=== PATIENT | female | born 1995 | race Caucasian/White ===

== ENCOUNTER 2016-11-13 22:02 | Emergency (ER) | payer OTHER ==
[2016-11-13 22:11] VITALS: RESP 16; TEMP 98.2
--- NOTE | 2016-11-13 22:30 | EDPHY ---
H & P Time Seen by Provider: 11/13/16 22:13 HPI/ROS: HPI Shaking, tingling, lightheaded, mild headache. 20-year-old female by private vehicle with her mother and boyfriend. Patient reports that she was eating dinner when she started feeling tingling in her hands and feet bilaterally. This was then associated with feeling lightheaded and shaky all over. She reports that she has a mild headache which she describes as gradual onset as well. She reports that she has had these symptoms on and off for the last 1-2 months. She has seen an ice crusher. She had blood work done recently and is waiting for the results of that blood work. She does not have any significant past medical history. She is feeling better at this time. She states she has been under stress with school and planning for her wedding this summer. ROS: Constitutional: No fever, no chills. As above. Eyes: No discharge. No changes in vision. ENT: No sore throat. No nasal congestion or rhinorrhea. Respiratory: No cough. No shortness of breath. Cardiac: No chest pain, no palpitations. Gastrointestinal: No abdominal pain, no vomiting, no diarrhea. Genitourinary: No hematuria. No dysuria or increased frequency with urination. Musculoskeletal: No back pain. No neck pain. No myalgias or arthralgias. Skin: No rashes. Neurological: No focal weakness. As above. Past medical history: Denies any past medical history. Social history: Nonsmoker. No alcohol. Here with her mother and boyfriend. Physical Exam: General Appearance: Thin. Alert, no distress. This patient is responding to questions appropriately and in full sentences. This patient appears well- hydrated and well-nourished. Eyes: Pupils equal and round no pallor or injection. No lid edema, erythema or injection. ENT, Mouth: Mucous membranes are moist. The pharyngeal tissues are unremarkable. No edema or swelling. No asymmetry suggestive of abscess. No erythema or exudates. Respiratory: There are no retractions, lungs are clear to auscultation with good air movement bilaterally. Cardiovascular: Regular rate and rhythm. No murmur. Neurological: Motor sensory function is grossly intact. Cranial nerves are normal. Gait is normal. Skin: Warm and dry, no rashes. Musculoskeletal: Neck is supple and nontender. Extremities are symmetrical. All joints range without pain or impingement. Psychiatric: No agitation. No depression. Database: EKG: EKG time is 10:36 p.m.; EKG shows a narrow complex normal sinus rhythm with a ventricular rate of 74. The MA, QRS, QT intervals are within normal limits. There are no ST-T wave changes indicative of ischemic or injury pattern. No evidence of right heart strain. No evidence of WPW, Brugada syndrome, hypertrophic cardiomyopathy. Interpreted by me. Imaging: Procedures: Emergency department course: Vital signs reviewed and are normal. Point of care glucose is 104. Patient's presentation is consistent with an anxiety reaction. EKG is unremarkable. Patient feeling better on re-evaluation at 10:45 p.m.. Results of EKG and point of care glucose discussed. Plan will be to have the patient follow up with her primary care physician and/or ice crusher for results of pending blood work and further management. Return to emergency department precautions reviewed with the patient and family. All of their questions were answered. She feels comfortable going home. She was discharged in good condition. Differential Diagnosis: The differential diagnosis on this patient includes but is not limited to anxiety reaction, hypoglycemia, panic attack. Arrhythmia, CVA, toxic metabolic etiology unlikely. This represents a partial list of diagnoses considered. These considerations are based on history, physical exam, past history, reassessment and diagnostic testing. Constitutional: Initial Vital Signs Temperature (C) 36.8 C 11/13/16 22:05 Heart Rate 87 11/13/16 22:05 Respiratory Rate 16 11/13/16 22:05 Blood Pressure 137/99 H 11/13/16 22:05 O2 Sat (%) 100 11/13/16 22:05 O2 Delivery Mode Room Air Allergies/Adverse Reactions: No Known Allergies Allergy (Unverified 11/13/16 22:11) Home Medications: Medication Instructions Recorded Bcp 11/13/16 Medical Decision Making - Data Points Laboratory Results: 11/13/16 22:26 POC Glucose Pending Departure - Departure Disposition: Home, Routine, Self-Care Clinical Impression: Anxiety reaction, Lightheaded Condition: Good Instructions: Anxiety (ED), Lightheadedness (ED) Additional Instructions: Read and follow provided instructions. Follow-up with your primary care physician or your ice crusher in 1-2 days for re-evaluation and review of your blood test results.. Eat regularly spaced meals 3 times daily. Keep yourself well hydrated. Return to the emergency department for worsening symptoms or other serious concerns. Referrals: Lizbet Mosley NP [Primary Care Provider] - As per Instructions
--- NOTE | 2016-11-13 22:38 | CPEKG ---
Heart Rate: 74 RR Interval: 811 P-R Interval: 164 QRSD Interval: 78 QT Interval: 368 QTC Interval: 409 P [place]: 67 QRS [place]: 76 T Wave [place]: 1 EKG Severity - NORMAL ECG - EKG Impression: SINUS RHYTHM Electronically Signed By: Ashlyn Alvarez 13-Nov-2016 23:04:09
[2016-11-13 23:10] VITALS: BP 124/88; PULSE 60; O2SAT 96
== END 2016-11-13 23:05 | disposition home or self-care (01) ==
LOC: CED 22:02
DX: R42 Dizziness and giddiness (principal); F41.9 Anxiety disorder, unspecified
CPT/HCPCS: 82947-QW